=== PATIENT | male | born 1970 | race Hispanic/Latino ===

== ENCOUNTER → 2019-09-06 | Day surgery (SDC) | payer OTHER ==
[2019-09-02 10:46] LABS: BASOPHILS # (AUTO) 0.1 (0.0-0.1); BASOPHILS % 1.3 % (0.0-1.0); EOSINOPHILS # (AUTO) 0.4 (0.0-0.4); EOSINOPHILS % 4.3 % (0.0-6.0); HEMATOCRIT 44.3 % (38.2-49.6); HEMOGLOBIN 14.4 g/dL (14.0-18.0); LYMPHOCYTES # (AUTO) 1.9 (1.0-3.2); LYMPHOCYTES % 22.3 % (18.0-39.1); MEAN CORPUSCULAR HEMOGLOBIN 27.7 pg (28-32); MEAN CORPUSCULAR HGB CONC 32.5 g/dL (31-35); MEAN CORPUSCULAR VOLUME 85.4 fL (81-99); MONOCYTES # (AUTO) 0.7 (0.2-0.8); MONOCYTES % 8.8 % (4.4-11.3); NEUTROPHILS # (AUTO) 5.3 (2.1-6.9); NEUTROPHILS % 62.5 % (38.7-80.0); PLATELET COUNT 293 x10e3/uL (140-360); RED BLOOD COUNT 5.19 x10e6/uL (4.3-5.7); RED CELL DISTRIBUTION WIDTH 13.6 % (11.7-14.4)
[2019-09-02 11:07] LABS: ANION GAP 12.1 mmol/L (8-16); BLOOD UREA NITROGEN 13 mg/dL (7-26); BUN/CREATININE RATIO 18 (6-25); CARBON DIOXIDE 23 mmol/L (22-29); CHLORIDE 107 mmol/L (98-107); CREATININE, SERUM 0.73 mg/dL (0.72-1.25); EST GLOMERULAR FILTRATION RATE > 60 ML/MIN (60-); GLUCOSE 111 mg/dL (74-118); POTASSIUM 4.1 mmol/L (3.5-5.1); SODIUM 138 mmol/L (136-145)
[~2019-09-06] MED LIST: BUPIVACAINE 0.5%/EPI 30 ML SDV INJ ONE; CEFAZOLIN SOD 1 GM VIAL ONE; DEXAMETHASONE SOD PHOS INJ 4 MG/ML VIAL ONE; DEXMEDETOMIDINE HCL 2 ML ONE; FENTANYL CITRATE/PF 100MCG/2 ML INJ ONE; GLYCOPYRROLATE INJ 0.2 MG/ML VIAL ONE; KETOROLAC TROMETHAMINE 30 MG/ML VIAL ONE; LIDOCAINE HCL 2% LOCAL INJ 5 ML SDV VIAL INJ ONE; LISINOPRIL-HCT1 EACH PO; MIDAZOLAM HCL 2 MG/2 ML VIAL ONE; NEOSTIGMINE 1 MG/ML 10ML VIAL ONE; ONDANSETRON HCL INJ 2MG/ML 2ML 2 MG/ML VIAL ONE; PROPOFOL IV EMULSION 10 MG/ML 20 ML VIAL ONE; ROCURONIUM BROMIDE 10 MG/ML 5ML VIAL IV ONE; SEVOFLURANE INHAL SOLN 250 ML PEN BTL ONE; SODIUM CHLORIDE 0.9% 50ML 50 ML ONE
--- NOTE | 2019-09-06 12:29 | Operative Report ---
DATE OF PROCEDURE: 09/06/2019 SURGEON: Christiano Kidd MD PREOPERATIVE DIAGNOSES: Umbilical hernia and epigastric ventral hernia. POSTOPERATIVE DIAGNOSES: Epigastric ventral hernias x2 and umbilical hernia. OPERATIONS PERFORMED: Repair of ventral hernias and umbilical hernia with mesh. SOCK AND STOCKING IRONER: COLLIN Cast. ANESTHESIA: General. COMPLICATIONS: None. ESTIMATED BLOOD LOSS: Minimal. DESCRIPTION OF PROCEDURE: With the patient lying in bed in the supine position under good general anesthesia, the abdomen was prepped with Betadine solution and draped in the usual manner. A midline supraumbilical incision was made. It was carried down through the subcutaneous tissue. Immediately, the hernia sac was encountered representing the ventral hernia. This was slowly and carefully dissected all the way around with normal fascia all the way around. The second hernia was found between the ventral hernia and the umbilical hernia, which was similarly dissected. The umbilicus was then detached from the hernia sac and the umbilical hernia was reduced back to the intra-abdominal cavity. The ventral hernias were then also similarly reduced back to the intra-abdominal cavity. The sac of the larger ventral hernia was resected. Digital examination of the intra-abdominal cavity did not reveal any other defects. The umbilical hernia was then repaired transversely with interrupted sutures of 0 Ethibond. There was good strong fascia and the defect was small, so this was closed primarily. The second epigastric hernia was closed with interrupted sutures of 0 Ethibond. A large Ventralex patch was then placed intra-abdominally through the larger hernia defect to cover both of the epigastric defects and the mesh was then anchored to the anterior abdominal wall with interrupted sutures of 0 Ethibond in all quadrants and then the defect was closed transversely using interrupted sutures of 0 Ethibond anchoring the mesh with the repair. This gave us satisfactory repair of all the defects. The whole area was thoroughly irrigated. Perfect hemostasis was ascertained. All layers were infiltrated with a solution of 0.25% Marcaine. The umbilicus was then tacked back down to the midline fascia with 3-0 Vicryl. The subcutaneous tissue was approximated with 2-0 Vicryl and the skin was closed with clips. A dressing was applied. The sponge, lap, and needle count was correct. The patient tolerated the procedure well and returned to the recovery room in stable condition. MD LINWOOD Braswell/SARITA /[id number]
[2019-09-06 14:30] VITALS: BP 121/83
== END | disposition home or self-care (01) ==
LOC: OR 08:20
PROVIDERS: ATTEND Surgery
DX: K43.9 Ventral hernia without obstruction or gangrene (principal); K42.9 Umbilical hernia without obstruction or gangrene; I10 Essential (primary) hypertension; I45.10 Unspecified right bundle-branch block; K21.9 Gastro-esophageal reflux disease without esophagitis; F17.210 Nicotine dependence, cigarettes, uncomplicated; Z01.810 Encounter for preprocedural cardiovascular examination; Z01.812 Encounter for preprocedural laboratory examination; Z11.59 Encounter for screening for other viral diseases
CPT/HCPCS: 36415; 49560; 49568; 49585; 80048; 85025; 87635; 93005; C1781; J0690; J1100; J1885; J2001; J2250; J2405; J2704; J2710; J3010